=== PATIENT | female | born 1990 | race Caucasian/White ===

== ENCOUNTER → 2018-05-29 08:25 | Outpatient (CLI) | payer BC ==
[~2018-05-29 08:25] MED LIST: AQUASOL E50 UNIT/ML PO; CYCLOBENZAPRINE10 MG PO; PRENATAL COMPLE1 TAB PO; VALTREX500 MG PO
[2018-06-01 06:24] VITALS: BMI 27.2
== END | disposition home or self-care (01) ==
LOC: D.LDO 08:25
DX: O26.893 Other specified pregnancy related conditions, third trimester (principal); Z3A.38 38 weeks gestation of pregnancy

== ENCOUNTER 2018-06-01 05:21 | Inpatient (IN) | payer BC ==
[~2018-06-01] VITALS: Ht 172.7 cm; Wt 81.4 kg
--- NOTE | ~2018-06-01 | DS ---
PATIENT:KATELYN ROTHMAN :88 MEDICAL RECORD: [id number] DISCHARGE SUMMARY ADMISSION DATE: 06/01/18 DISCHARGE DATE: 06/03/18 HISTORY: The patient was admitted on 06/01/2018. A 27-year-old at 39 weeks and 3 days, admitted for induction of labor per the patient's wishes. The patient was noted to be O positive, group B strep positive, rubella immune. PAST MEDICAL HISTORY: The patient's past medical history is significant for herpes simplex infection and positive for group B strep infection. PAST SURGICAL HISTORY: Significant for posttraumatic fasciotomy of the right superior leg. ALLERGIES: The patient reported no allergies. MEDICATIONS: Included vitamins, Flexeril, and Valtrex. FAMILY HISTORY: The patient reported family history significant for a parent with cardiovascular disease and cancer not otherwise specified. SOCIAL HISTORY: The patient reported social history negative times 3. PHYSICAL EXAMINATION: VITAL SIGNS: At admission, were within normal limit. LUNGS: Clear to auscultation. CARDIOVASCULAR: Regular rate and rhythm. PELVIC: Uterus was appropriately sized and nontender. EXTREMITIES: Lower extremities were free of erythema or Homans' sign. ASSESSMENT AND PLAN: 1. Term intrauterine at 39 weeks and 3 days. 2. History of herpes simplex virus. 3. Induction of labor per the patient's wishes. 4. Group B strep. Plan at that time was for Pitocin induction of labor, on penicillin for group B strep. wellbeing was reassuring with category 1 tracing. The patient was started on Pitocin and progressed to 4 cm, at which point rupture of membranes was performed with clear fluid and category 1 heart rate tracing. The patient progressed to the second stage of labor and had a normal spontaneous vaginal delivery with second-degree perineal laceration. The delivery note is as on the chart. The patient did well overnight on day #0, tolerating p.o. pain meds, voiding freely, ambulating, tolerating general diet. On the morning of day #1, the patient continued to do well. Vital signs were stable. The patient was afebrile. Hemoglobin was found to be stable, tolerating p.o. pain meds and general diet. The patient remained overnight on day #1 due to the infant's group B strep status and the patient continued to improve. On the morning of day #2, the patient remained afebrile and normotensive. Uterus remained infraumbilical and nontender. The patient with minimal lochia. At that time, the patient was discharged home on day #2 with instructions to follow up in 4 weeks. TRANSINT:[id number] Voice Confirmation ID: [id number] DOCUMENT ID: [id number] DISCHARGE SUMMARY REPORT [id number] KATELYN ROTHMAN, JAVI Smith MD at 1754 CC: [id number] DICTATION DATE: 07/03/181749 [employer] OPERATOR: 07/03/182004 DIS IN 06/03/18 [facility] [address] [place] [address]
[2018-06-01] MEDS ORDERED: PRENATAL COMPLE1 TAB PO (06:01)
[2018-06-01] MEDS ORDERED: AQUASOL E50 UNIT/ML PO (06:01)
[2018-06-01] MEDS ORDERED: CYCLOBENZAPRINE10 MG PO (06:02)
[2018-06-01] MEDS ORDERED: VALTREX500 MG PO (06:02)
[2018-06-01 06:24] VITALS: BP 118/78; Ht 172.7 cm; Wt 81.4 kg
[2018-06-01 06:40] LABS: HEMATOCRIT 38.9 % (36.0-48.0); HEMOGLOBIN 13.5 g/dL (12-16); MCH 32.8 pg (26.0-34.0); MCHC 34.7 g/dL (31.0-37.0); MCV 94.4 fL (80.0-100.0); MEAN PLATELET VOLUME 10.9 fL (7.4-10.4); RBC 4.12 10x6/uL (4.00-5.40); RDW 12.8 % (11.5-14.5); WBC 8.3 10x3/uL (4.8-10.8)
[2018-06-01 06:57] LABS: UDS - AMPHET NEGATIVE QUAL (NEGATIVE); UDS - BARB NEGATIVE QUAL (NEGATIVE); UDS - BENZO NEGATIVE QUAL (NEGATIVE); UDS - COCAINE NEGATIVE QUAL (NEGATIVE); UDS - OPIATE NEGATIVE QUAL (NEGATIVE); UDS - PCP NEGATIVE QUAL (NEGATIVE); UDS - THC NEGATIVE QUAL (NEGATIVE)
[2018-06-01 07:10] LABS: APPEARANCE CLEAR (CLEAR); BILIRUBIN NEGATIVE (NEGATIVE); COLOR YELLOW (YELLOW); GLUCOSE NEGATIVE (NEGATIVE); KETONE NEGATIVE (NEGATIVE); NITRITE POSITIVE (NEGATIVE); PROTEIN NEGATIVE (NEGATIVE); UROBILINOGEN NORMAL (NORMAL)
[2018-06-01 07:11] LABS: BACTERIA MODERATE /hpf (NONE SEEN)
[2018-06-01 07:12] LABS: EPITHELIAL CELLS 0-5 /hpf (0-5)
[2018-06-01 07:14] LABS: WHITE CELLS - URINE 0-5 /hpf (0-5)
[2018-06-02 05:54] LABS: BASOPHILS 0.1 % (0-2); EOSINOPHILS 0.1 % (0-7); HEMATOCRIT 34.3 % (36.0-48.0); HEMOGLOBIN 11.8 g/dL (12-16); IMMATURE GRANULOCYTES 0.2 % (0-5); LYMPHOCYTES 8.7 % (15-50); MCH 32.4 pg (26.0-34.0); MCHC 34.4 g/dL (31.0-37.0); MCV 94.2 fL (80.0-100.0); MEAN PLATELET VOLUME 10.6 fL (7.4-10.4); MONOCYTES 5.1 % (2-11); NEUTROPHILS 85.8 % (40-80); PLATELET COUNT 200 10x3/uL (130-400); RBC 3.64 10x6/uL (4.00-5.40); RDW 12.7 % (11.5-14.5)
[2018-06-02 05:56] LABS: WBC 14.3 10x3/uL (4.8-10.8)
[2018-06-02 07:15] VITALS: BP 125/82
[2018-06-02 16:35] VITALS: BP 118/78
[2018-06-02 21:02] VITALS: BP 125/82
[2018-06-03 06:14] LABS: RAPID PLASMA REAGIN Non Reactive (Non Reactive)
[2018-06-03 08:30] VITALS: BP 130/78
[2018-06-03 20:23] VITALS: BP 135/92
== END 2018-06-03 20:50 | disposition home or self-care (01) | DRG 774 ==
LOC: D.LD 05:21
PROVIDERS: Obstetrics & Gynecology
PROC: 10E0XZZ Delivery of Products of Conception, External Approach (ICD-10-PCS; principal; 2018-06-01)
PROC: 10907ZC Drainage of Amniotic Fluid, Therapeutic from Products of Conception, Via Natural or Artificial Opening (ICD-10-PCS; 2018-06-01)
DX: O98.52 Other viral diseases complicating childbirth (principal); Z3A.39 39 weeks gestation of pregnancy; Z37.0 Single live birth; O99.824 Streptococcus B carrier state complicating childbirth; O70.1 Second degree perineal laceration during delivery